=== PATIENT | male | born 1975 | race Caucasian/White ===

== ENCOUNTER → 2021-11-07 | Outpatient (CLI) | payer MEDICAID ==
--- NOTE | 2021-11-07 15:52 | Diagnostic Imaging Report ---
US LEFT LOWER EXT [id number] INDICATION: Recurrent inguinal hernia COMPARISON: None available. TECHNIQUE: Grayscale imaging of the left ankle canal was performed. FINDINGS: Within the inguinal canal, there is a tubular structure with bowel signature and its echogenicity is most compatible with a loop of bowel in the inguinal canal. IMPRESSION: Ultrasound indicates a loop of bowel within the inguinal canal indicative of hernia. If it will alter patient management, consider CT of the pelvis without contrast to determine if this is a direct or indirect hernia. Dictated by: Dictated on workstation # [id number]
== END ==
LOC: RAD 13:00
PROVIDERS: ATTEND Nurse Practitioner Family
DX: K40.90 Unilateral inguinal hernia, without obstruction or gangrene, not specified as recurrent (principal)
CPT/HCPCS: 76881

== ENCOUNTER → 2021-12-21 | Outpatient (CLI) | payer MEDICAID | END | disposition home or self-care (01) | LOC: PREOP 12-07 05:35 | PROVIDERS: ATTEND Surgery | DX: Z01.818 Encounter for other preprocedural examination (principal) ==